=== PATIENT | female | born 1985 | race Hispanic/Latino ===

== ENCOUNTER 2017-10-31 21:34 | Emergency (ER) | payer OTHER ==
[2017-10-31 23:52] VITALS: BP 150/103
[2017-11-01 00:34] LABS: Basophils # (Auto) 0.1 K/mm3 (0.0-0.1); Basophils % (Auto) 0.6 % (0.0-1.8); Eosinophils # (Auto) 0.4 K/mm3 (0.0-0.4); Hematocrit 39.5 % (30.3-42.9); Lymphocytes # (Auto) 1.7 K/mm3 (1.2-5.4); Lymphocytes % (Auto) 12.7 % (13.4-35.0); Mean Corpuscular HGB Conc 33 % (30-34); Mean Corpuscular Hemoglobin 31 pg (28-32); Mean Corpuscular Volume 96 fl (79-97); Monocytes # (Auto) 1.6 K/mm3 (0.0-0.8); Platelet Count 321 K/mm3 (140-440); Red Blood Count 4.13 M/mm3 (3.65-5.03); Red Cell Distribution Width 13.2 % (13.2-15.2)
[2017-11-01 00:56] LABS: Alanine Aminotransferase 7 units/L (7-56); Albumin 4.2 g/dL (3.9-5); BUN/Creatinine Ratio 14; Blood Urea Nitrogen 7 mg/dL (7-17); Calcium 8.8 mg/dL (8.4-10.2); Hemolysis Index 10; Lipase 19 units/L (13-60)
[2017-11-01 01:57] LABS: HCG Qualitative,Urine Negative (Negative)
[2017-11-01 02:00] LABS: Bilirubin,Urine NEG (Negative); Blood,Urine MOD (Negative); Calcium Oxalate Crystals,Urine 3+; Color,Urine Yellow (Yellow); Hyaline Casts,Urine 1 /LPF; Mucus,Urine 3+ /HPF; Nitrite,Urine NEG (Negative); Protein,Urine <15 mg/dL mg/dL (Negative); Urobilinogen,Urine < 2.0 mg/dL (<2.0)
== END 2017-11-01 04:54 | disposition left against medical advice (07) ==
LOC: ED 21:34
DX: R10.9 Unspecified abdominal pain (principal); Z53.21 Procedure and treatment not carried out due to patient leaving prior to being seen by health care provider
CPT/HCPCS: 36415; 80053; 81001; 81025; 83690; 85025

== ENCOUNTER 2019-06-21 20:55 | Emergency (ER) | payer OTHER ==
--- NOTE | 2019-06-21 21:33 | Event Note ---
ED Screening Note Date of service: 06/21/19 Time: 21:31 ED Screening Note: 33 y olf female presents with left sided chest pain radiating upwards to shoulder hx of HTN on 5 medications hx of TIA,VAZQUEZ This initial assessment/diagnostic orders/clinical plan/treatment(s) is/are subject to change based on patients health status, clinical progression and re- assessment by fellow clinical providers in the ED. Further treatment and workup at subsequent clinical providers discretion. Patient/guardian urged not to elope from the ED as their condition may be serious if not clinically assessed and managed. Initial orders include: labs ordered ekg Main eval
[2019-06-21 22:02] LABS: Basophils # (Auto) 0.2 K/mm3 (0.0-0.1); Basophils % (Auto) 2.2 % (0.0-1.8); Eosinophils # (Auto) 0.3 K/mm3 (0.0-0.4); Eosinophils % (Auto) 3.7 % (0.0-4.3); Hematocrit 47.1 % (30.3-42.9); Hemoglobin 16.1 gm/dl (10.1-14.3); Lymphocytes # (Auto) 1.7 K/mm3 (1.2-5.4); Lymphocytes % (Auto) 19.6 % (13.4-35.0); Mean Corpuscular HGB Conc 34 % (30-34); Mean Corpuscular Volume 95 fl (79-97); Monocytes # (Auto) 1.1 K/mm3 (0.0-0.8); Monocytes % (Auto) 12.3 % (0.0-7.3); Platelet Count 342 K/mm3 (140-440); Red Blood Count 4.94 M/mm3 (3.65-5.03); Red Cell Distribution Width 13.5 % (13.2-15.2)
[2019-06-21 22:22] LABS: Amphetamine Screen,Urine PRESUMPTIVE NEGATIVE; Benzodiazepines Screen,Urine PRESUMPTIVE NEGATIVE; Cocaine Screen,Urine PRESUMPTIVE NEGATIVE; Methadone Screen,Urine PRESUMPTIVE NEGATIVE; Opiate Screen,Urine PRESUMPTIVE NEGATIVE
--- NOTE | 2019-06-21 22:23 | XRay Report ---
CHEST 2 VIEWS INDICATION / CLINICAL INFORMATION: Chest Pain. COMPARISON: None available. FINDINGS: SUPPORT DEVICES: None. HEART / MEDIASTINUM: No significant abnormality. LUNGS / PLEURA: No significant pulmonary or pleural abnormality. No pneumothorax. ADDITIONAL FINDINGS: No significant additional findings. IMPRESSION: 1. No significant abnormality. Signer Name: Jessy Dodd MD Signed: 06/21/2019 10:19 PM Workstation Name: [id number]
[2019-06-21 22:29] LABS: Alanine Aminotransferase 6 units/L (7-56); Albumin 4.5 g/dL (3.9-5); BUN/Creatinine Ratio 10; Blood Urea Nitrogen 7 mg/dL (7-17); Calcium 9.1 mg/dL (8.4-10.2); Hemolysis Index 9
[2019-06-21] MEDS ORDERED: TORADOL IV ONE (22:34)
[2019-06-21] MEDS ORDERED: MORPHINE IV ONE (22:34)
[2019-06-21] MEDS ORDERED: ZOFRAN IV ONE (22:34)
[2019-06-21 22:47] LABS: INR 1.14 (0.87-1.13)
[2019-06-21 22:54] LABS: Cannabinoid Screen,Urine PRESUMPTIVE POSITIVE
--- NOTE | 2019-06-21 23:04 | Emergency Department Report ---
ED Chest Pain HPI - General Chief Complaint: Chest Pain Stated Complaint: SHARP PAINS ON THE LEFT SIDE OF CHEST Time Seen by Provider: 06/21/19 21:30 Source: patient Mode of arrival: Ambulatory Limitations: No Limitations - History of Present Illness Initial Comments: 33-year-old female in the past medical history of hypertension, TIA, enlarged heart, and previous hysterectomy presents to the hospital with complains of left-sided sharp chest pain as started at 8:30 PM. Pain is constant, worse palpation, movement, and deep inspiration. Pain is at the left side of the chest and radiates to the left shoulder and left arm. Patient is 8/10 in intens ity and no alleviating symptoms reported. Positive shortness of breath, nausea, and vomiting. No diaphoresis. She denies history of PE/DVT, control pill use, calf tenderness, or leg edema. Patient last [id number] travel was 4 hours to and from [place] in March. Patient states 4 different medications for her blood pressure as well as an anti-depressant. She took a last dose of her medications yesterday afternoon because she ran out. She reports having a stress test 4 years ago that was not followed by cardiac cath. Her [employer] group is [place] heart associated Severity scale (0 -10): 8 - Related Data Previous Rx's Medication Instructions Recorded Last Taken Type Aspirin EC 325 mg PO QDAY #30 tablet. 06/22/19 Unknown Rx Lisinopril [Zestril TAB] 40 mg PO QDAY #7 tablet 06/22/19 Unknown Rx Spironolactone [Aldactone] 12.5 mg PO QDAY #7 tablet 06/22/19 Unknown Rx amLODIPine [Norvasc] 10 mg PO DAILY #7 tab 06/22/19 Unknown Rx buPROPion SR [Wellbutrin SR] 150 mg PO BID #14 tab 06/22/19 Unknown Rx hydroCHLOROthiazide [Hctz] 12.5 mg PO QDAY #7 capsule 06/22/19 Unknown Rx traMADol [Ultram 50 MG tab] 50 mg PO Q6HR PRN #14 tablet 06/22/19 Unknown Rx Allergies Allergy/AdvReac Type Severity Reaction Status Date / Time iodine Allergy Itching Verified 10/31/17 23:53 metoclopramide [From Reglan] Allergy Vomiting Verified 10/31/17 23:54 promethazine [From Phenergan] Allergy Vomiting Verified 10/31/17 23:53 amoxicillin [From Amoxil] AdvReac Vomiting Verified 10/31/17 23:54 Heart Score - HEART Score History: Slightly suspicious EKG: Non-specific Age: < 45 Risk factors: 1-2 risk factors (family hx unkown pt is adopted) Troponin: < normal limit HEART Score: 2 ED Review of Systems ROS: Stated complaint: SHARP PAINS ON THE LEFT SIDE OF CHEST Other details as noted in HPI Comment: All other systems reviewed and negative ED Past Medical Hx - Past Medical History Hx CVA: Yes (TIA) Hx Heart Attack/AMI: Yes Additional medical history: enlarged heart, ovarian cyst, kidney stones, - Surgical History Additional Surgical History: tonsils, tubal ligation, partial hysterectomy - Social History Smoking Status: Current Every Day Smoker Substance Use Type: None - Medications Home Medications: Home Medications Medication Instructions Recorded Confirmed Last Taken Type Aspirin EC 325 mg PO QDAY #30 tablet.dr 06/22/19 Unknown Rx Lisinopril [Zestril TAB] 40 mg PO QDAY #7 tablet 06/22/19 Unknown Rx Spironolactone [Aldactone] 12.5 mg PO QDAY #7 tablet 06/22/19 Unknown Rx amLODIPine [Norvasc] 10 mg PO DAILY #7 tab 06/22/19 Unknown Rx buPROPion SR [Wellbutrin SR] 150 mg PO BID #14 tab 06/22/19 Unknown Rx hydroCHLOROthiazide [Hctz] 12.5 mg PO QDAY #7 capsule 06/22/19 Unknown Rx traMADol [Ultram 50 MG tab] 50 mg PO Q6HR PRN #14 tablet 06/22/19 Unknown Rx ED Physical Exam - General Limitations: No Limitations - Other Other exam information: General: No acute distress Head: Atraumatic Eyes: Normal appearance, Pupils equal and reactive to light, extraocular movements intact ENT: Normal oropharynx Neck: Normal appearance, no posterior or midline tenderness, no meningismus Chest: Clear to auscultation bilaterally, no wheezes, rales, or crackles. Reproducible left anterior chest wall tenderness extending to the shoulder CV: Regular rate and rhythm Abdomen: soft, nontender, nondistended, no rebound or guarding Back: Nontender Extremity: Normal inspection, full range of motion, left shoulder and arm tenderness to palpation, no calf tenderness or leg edema Neuro: Alert and oriented 3, speech clear, no gross motor or sensory deficit Skin: No rash, redness, warmth ED Course Vital Signs 06/21/19 06/21/19 06/21/19 21:01 21:32 22:42 Temperature 98.8 F 98.2 F Pulse Rate 98 H 89 Respiratory 18 18 Rate Blood Pressure 160/125 Blood Pressure 210/131 [Right] O2 Sat by Pulse 99 99 93 Oximetry 06/21/19 06/21/19 06/21/19 22:46 23:00 23:15 Temperature Pulse Rate 58 L 74 67 Respiratory 14 18 21 Rate Blood Pressure 158/97 158/107 158/97 Blood Pressure [Right] O2 Sat by Pulse 100 100 100 Oximetry - Reevaluation(s) Reevaluation #1: 06/22/19 01:25 pt states her bp is always high with sbp 160's-200 and dbp over 100 pt was provided Lisinopril - Consultations Consultation #1: 06/22/19 01:14 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, since heart score less then 4, if repeat trop neg, pt may f/u HUGO score - Hugo Score Age > 65: (0) No Aspirin use within the Past 7 Days: (0) No 3 or more CAD Risk Factors: (0) No 2 or more Angina events in past 24 hrs: (0) No Known CAD with more than 50% Stenosis: (0) No Elevated Cardiac Markers: (0) No ST Deviation Greater than 0.5mm: (0) No HUGO Score: 0 ED Medical Decision Making - Lab Data Result diagrams: 06/21/19 21:43 06/21/19 21:43 Lab Results 06/21/19 06/21/19 06/21/19 Range/Units 21:43 21:43 22:15 WBC 8.8 (4.5-11.0) K/mm3 RBC 4.94 (3.65-5.03) M/mm3 Hgb 16.1 H (10.1-14.3) gm/dl Hct 47.1 H (30.3-42.9) % MCV 95 (79-97) fl MCH 33 H (28-32) pg MCHC 34 (30-34) % RDW 13.5 (13.2-15.2) % Plt Count 342 (140-440) K/mm3 Lymph % (Auto) 19.6 (13.4-35.0) % Meade % (Auto) 12.3 H (0.0-7.3) % Eos % (Auto) 3.7 (0.0-4.3) % Baso % (Auto) 2.2 H (0.0-1.8) % Lymph # 1.7 (1.2-5.4) K/mm3 Meade # 1.1 H (0.0-0.8) K/mm3 Eos # 0.3 (0.0-0.4) K/mm3 Baso # 0.2 H (0.0-0.1) K/mm3 Seg Neutrophils % 62.2 (40.0-70.0) % Seg Neutrophils # 5.5 (1.8-7.7) K/mm3 PT 14.3 (12.2-14.9) Sec. INR 1.14 H (0.87-1.13) D-Dimer < 135.0 (0-234) ng/mlDDU Sodium 144 (137-145) mmol/L Potassium 3.4 L (3.6-5.0) mmol/L Chloride 103.9 (98-107) mmol/L Carbon Dioxide 28 (22-30) mmol/L Anion Gap 16 mmol/L BUN 7 (7-17) mg/dL Creatinine 0.7 (0.7-1.2) mg/dL Estimated GFR > 60 ml/min BUN/Creatinine Ratio 10 % Glucose 81 (65-100) mg/dL Calcium 9.1 (8.4-10.2) mg/dL Total Bilirubin 0.60 (0.1-1.2) mg/dL AST 11 (5-40) units/L ALT 6 L (7-56) units/L Alkaline Phosphatase 73 (35-129) units/L Troponin T < 0.010 (0.00-0.029) ng/mL Total Protein 7.1 (6.3-8.2) g/dL Albumin 4.5 (3.9-5) g/dL Albumin/Globulin Ratio 1.7 % Lipase 29 (13-60) units/L Urine Opiates Screen Urine Methadone Screen Ur Barbiturates Screen Ur Phencyclidine Scrn Ur Amphetamines Screen U Benzodiazepines Scrn Urine Cocaine Screen U Marijuana (THC) Screen Drugs of Abuse Note 06/21/19 Range/Units Unknown WBC (4.5-11.0) K/mm3 RBC (3.65-5.03) M/mm3 Hgb (10.1-14.3) gm/dl Hct (30.3-42.9) % MCV (79-97) fl MCH (28-32) pg MCHC (30-34) % RDW (13.2-15.2) % Plt Count (140-440) K/mm3 Lymph % (Auto) (13.4-35.0) % Meade % (Auto) (0.0-7.3) % Eos % (Auto) (0.0-4.3) % Baso % (Auto) (0.0-1.8) % Lymph # (1.2-5.4) K/mm3 Meade # (0.0-0.8) K/mm3 Eos # (0.0-0.4) K/mm3 Baso # (0.0-0.1) K/mm3 Seg Neutrophils % (40.0-70.0) % Seg Neutrophils # (1.8-7.7) K/mm3 PT (12.2-14.9) Sec. INR (0.87-1.13) D-Dimer (0-234) ng/mlDDU Sodium (137-145) mmol/L Potassium (3.6-5.0) mmol/L Chloride (98-107) mmol/L Carbon Dioxide (22-30) mmol/L Anion Gap mmol/L BUN (7-17) mg/dL Creatinine (0.7-1.2) mg/dL Estimated GFR ml/min BUN/Creatinine Ratio % Glucose (65-100) mg/dL Calcium (8.4-10.2) mg/dL Total Bilirubin (0.1-1.2) mg/dL AST (5-40) units/L ALT (7-56) units/L Alkaline Phosphatase (35-129) units/L Troponin T (0.00-0.029) ng/mL Total Protein (6.3-8.2) g/dL Albumin (3.9-5) g/dL Albumin/Globulin Ratio % Lipase (13-60) units/L Urine Opiates Screen Presumptive negative Urine Methadone Screen Presumptive negative Ur Barbiturates Screen Presumptive negative Ur Phencyclidine Scrn Presumptive negative Ur Amphetamines Screen Presumptive negative U Benzodiazepines Scrn Presumptive negative Urine Cocaine Screen Presumptive negative U Marijuana (THC) Screen Presumptive positive Drugs of Abuse Note Disclamer - EKG Data -: EKG Interpreted by Me EKG shows normal: sinus rhythm, ST-T waves (no stemi) Rate: tachycardia (104) - Radiology Data Radiology results: report reviewed CHEST 2 VIEWS INDICATION / CLINICAL INFORMATION: Chest Pain. COMPARISON: None available. FINDINGS: SUPPORT DEVICES: None. HEART / MEDIASTINUM: No significant abnormality. LUNGS / PLEURA: No significant pulmonary or pleural abnormality. No pneumothorax. ADDITIONAL FINDINGS: No significant additional findings. IMPRESSION: 1. No significant abnormality. - Medical Decision Making chest wall pain improved with ed tx of toradol and morphine bp trending downward, lisinopril provided Po Kcl given for hypokalemia (mild) pt states she has kcl at home Patient has a low heart score less than 4 and therefore does not warrant admi ssion tonight Troponin is negative 2 Case Discussed with [employer] Patient plans to follow-up within next 24-40 hours. 1 week supply of her meds will be prescribed - Differential Diagnosis mi, costochondritis, muscle strain, pronate embolism, pneumothorax Critical Care Time: No Critical care attestation.: If time is entered above; I have spent that time in minutes in the direct care of this critically ill patient, excluding procedure time. ED Disposition Clinical Impression: Chest wall pain, Uncontrolled hypertension, Hypokalemia, Noncompliance with medication regimen, Nausea and vomiting Disposition: DC-01 TO HOME OR SELFCARE Is pt being admited?: No Does the pt Need Aspirin: No Condition: Stable Instructions: Chest Pain (ED), Hypertension (ED), Acute Nausea and Vomiting (ED), Hypokalemia (ED) Additional Instructions: Take the medication as prescribed. Follow-up with your doctor or the doctor/clinic provided. Return is symptoms worsen as indicated by your discharge instructions. Prescriptions: Spironolactone [Aldactone] 12.5 mg PO QDAY #7 tablet Aspirin EC 325 mg PO QDAY #30 tablet. hydroCHLOROthiazide [Hctz] 12.5 mg PO QDAY #7 capsule amLODIPine [Norvasc] 10 mg PO DAILY #7 tab traMADol [Ultram 50 MG tab] 50 mg PO Q6HR PRN #14 tablet PRN Reason: Pain buPROPion SR [Wellbutrin SR] 150 mg PO BID #14 tab Lisinopril [Zestril TAB] 40 mg PO QDAY #7 tablet Referrals: MICHAEL OTTO [Other] - 3-5 Days REUBEN MEZA MD [Staff Physician] - 2-3 Days Time of Disposition: 01:36
[2019-06-21] MEDS ORDERED: K-DUR PO ONE (23:14)
[2019-06-21] MEDS ORDERED: ZESTRIL PO ONE (23:14)
[2019-06-22 01:42] VITALS: BP 160/111
== END 2019-06-22 02:15 | disposition home or self-care (01) ==
LOC: ED 20:55
DX: E87.6 Hypokalemia (principal); I10 Essential (primary) hypertension; R07.89 Other chest pain; I25.2 Old myocardial infarction; F17.200 Nicotine dependence, unspecified, uncomplicated; Z98.51 Tubal ligation status; Z91.14 Patient's other noncompliance with medication regimen; Z86.73 Personal history of transient ischemic attack (TIA), and cerebral infarction without residual deficits; Z90.710 Acquired absence of both cervix and uterus; Z79.82 Long term (current) use of aspirin; Z79.899 Other long term (current) drug therapy; Z88.6 Allergy status to analgesic agent; Z88.1 Allergy status to other antibiotic agents; Z88.8 Allergy status to other drugs, medicaments and biological substances
CPT/HCPCS: 36415; 71046; 80053; 80307; 83690; 84484; 85025; 85379; 85610; 93005; 93010; 96374; 96375; 99284; J1885; J2270; J2405

== ENCOUNTER 2020-12-07 18:28 | Emergency (ER) | payer OTHER ==
--- NOTE | 2020-12-07 19:15 | Emergency Department Report ---
ED General Adult HPI - General Stated complaint: FEET NUMB/CANT WALK WELL Time Seen by Provider: 12/07/20 19:14 - History of Present Illness Initial comments: 34-year-old female who reports a past medical history of MIs x2, "enlarged heart", TIA, hypertension, medication noncompliance and tobacco use presents to the ER today complaining of pain to the plantar aspect of both feet. She states that she has been having symptoms for about a year. She states that the pain is sharp, and and when the pain is severe it gets numb. She states that the pain is same throughout the day. It is worse when she ambulates. She states that she used to work at a job where she stood up a lot, but she stopped working there about a month ago. She states that she has been to multiple doctors for her feet pain and nobody can tell her what is going on. She states that she has had a blood sugar checked and that was normal. She is also had evaluation of her veins and arteries and those were also normal. She has not followed up with a child and adolescent psychiatrist. She denies any associated swelling, bruising, calf pain, chest pain or shortness of breath. MD Complaint: Bilateral plantar feet pain -: year(s) (1) - Related Data Previous Rx's Medication Instructions Recorded Last Taken Type Aspirin EC [Ecotrin] 325 mg PO QDAY #30 tablet. 06/22/19 Unknown Rx Spironolactone [Aldactone] 12.5 mg PO QDAY #7 tablet 06/22/19 Unknown Rx amLODIPine [Norvasc] 10 mg PO DAILY #7 tab 06/22/19 Unknown Rx buPROPion SR [Wellbutrin SR] 150 mg PO BID #14 tab 06/22/19 Unknown Rx hydroCHLOROthiazide [Hctz] 12.5 mg PO QDAY #7 capsule 06/22/19 Unknown Rx lisinopriL [Zestril TAB] 40 mg PO QDAY #7 tablet 06/22/19 Unknown Rx Acetaminophen/Codeine [Tylenol 1 tab PO Q4HR PRN #12 tablet 12/07/20 Unknown Rx /Codeine # 3 tab] methylPREDNISolone [Medrol 4MG 4 mg PO DAILY #1 tab.ds.pk 12/07/20 Unknown Rx DOSEPAK (21 tabs)] Allergies Allergy/AdvReac Type Severity Reaction Status Date / Time iodine Allergy Itching Verified 10/31/17 23:53 metoclopramide [From Reglan] Allergy Vomiting Verified 10/31/17 23:54 promethazine [From Phenergan] Allergy Vomiting Verified 10/31/17 23:53 amoxicillin [From Amoxil] AdvReac Vomiting Verified 10/31/17 23:54 ED Review of Systems ROS: Stated complaint: FEET NUMB/CANT WALK WELL Other details as noted in HPI Comment: All other systems reviewed and negative Musculoskeletal: arthralgia. denies: joint swelling Neurological: numbness ED Past Medical Hx - Past Medical History Hx CVA: Yes (TIA) Hx Heart Attack/AMI: Yes Additional medical history: enlarged heart, ovarian cyst, kidney stones, - Surgical History Additional Surgical History: tonsils, tubal ligation, partial hysterectomy - Social History Smoking Status: Current Every Day Smoker Substance Use Type: None - Medications Home Medications: Home Medications Medication Instructions Recorded Confirmed Last Taken Type Aspirin EC [Ecotrin] 325 mg PO QDAY #30 tablet.dr 06/22/19 Unknown Rx Spironolactone [Aldactone] 12.5 mg PO QDAY #7 tablet 06/22/19 Unknown Rx amLODIPine [Norvasc] 10 mg PO DAILY #7 tab 06/22/19 Unknown Rx buPROPion SR [Wellbutrin SR] 150 mg PO BID #14 tab 06/22/19 Unknown Rx hydroCHLOROthiazide [Hctz] 12.5 mg PO QDAY #7 capsule 06/22/19 Unknown Rx lisinopriL [Zestril TAB] 40 mg PO QDAY #7 tablet 06/22/19 Unknown Rx Acetaminophen/Codeine [Tylenol 1 tab PO Q4HR PRN #12 tablet 12/07/20 Unknown Rx /Codeine # 3 tab] methylPREDNISolone [Medrol 4MG 4 mg PO DAILY #1 tab.ds.pk 12/07/20 Unknown Rx DOSEPAK (21 tabs)] ED Physical Exam - General Limitations: No Limitations, Language Barrier General appearance: alert, in no apparent distress - Head Head exam: Present: atraumatic, normocephalic, normal inspection - Eye Eye exam: Present: normal appearance, PERRL, EOMI Pupils: Present: normal accommodation - ENT ENT exam: Present: normal exam, mucous membranes moist - Respiratory Respiratory exam: Absent: respiratory distress - Cardiovascular Cardiovascular Exam: Present: regular rate, normal rhythm, normal heart sounds - Extremities Exam Extremities exam: Present: normal inspection, full ROM, tenderness (Moderate tenderness to palpation along the ball of both feet; Pain is increased on dorsiflexion; no swelling, ecchymosis, deformity noted; Cap refill nl, dorsalis pedis pulse nl, ROM of toes nl), normal capillary refill. Absent: pedal edema, joint swelling - Neurological Exam Neurological exam: Present: alert, oriented X3, CN II-XII intact, normal gait. Absent: motor sensory deficit - Psychiatric Psychiatric exam: Present: normal affect, normal mood - Skin Skin exam: Present: intact ED Course Vital Signs 12/07/20 19:14 Temperature 98.7 F Pulse Rate 96 H Respiratory 18 Rate Blood Pressure 176/120 O2 Sat by Pulse 100 Oximetry ED Medical Decision Making - Medical Decision Making Patient presented to the ER with complaints of chronic plantar foot pain. Patient blood pressure noted to be elevated in triage. Patient admits that she has been noncompliant with her blood pressure medication. Patient has no symptoms related to her elevated blood pressure. Patient is well-appearing, not toxic, not ill-appearing, she is awake alert oriented x3 and neurologically intact. Emergent blood pressure treatment nor work-up indicated at this time. Patient was encouraged to restart her blood pressure medication. She has a follow-up appointment with her primary care doctor on the . She is instructed to keep that appointment to continue follow-up with her blood pressure. As far as the foot is concerned, informed patient that she needs to see a child and adolescent psychiatrist for her foot pain, as it could be related to plantar fasciitis. Patient expressed understanding of instructions and agree with plan. Patient was stable at time of discharge. Critical care attestation.: If time is entered above; I have spent that time in minutes in the direct care of this critically ill patient, excluding procedure time. ED Disposition Clinical Impression: Bilateral foot pain, Uncontrolled hypertension Disposition: TO HOME OR SELFCARE Is pt being admited?: No Does the pt Need Aspirin: No Condition: Stable Instructions: Hypertension, Adult, [id number], Foot Pain, Hypertension (ED) Additional Instructions: I recommend that you restart your blood pressure medications. Take the tylenol 3 and decadron as prescribed. Call your insurance to find a local child and adolescent psychiatrist for further eval of your foot pain. Return to ED if symptoms changes or worsens. Prescriptions: methylPREDNISolone [Medrol 4MG DOSEPAK (21 tabs)] 4 mg PO DAILY #1 tab.ds.pk Acetaminophen/Codeine [Tylenol /Codeine # 3 tab] 1 tab PO Q4HR PRN #12 tablet PRN Reason: Pain Referrals: [facility] [Provider Group] - 3-5 Days Time of Disposition: 19:39
[2020-12-07 19:18] VITALS: BP 176/120
== END 2020-12-07 20:19 | disposition home or self-care (01) ==
LOC: ED 18:28
DX: M79.672 Pain in left foot (principal); M79.671 Pain in right foot; I10 Essential (primary) hypertension; F17.200 Nicotine dependence, unspecified, uncomplicated; Z98.890 Other specified postprocedural states; Z86.73 Personal history of transient ischemic attack (TIA), and cerebral infarction without residual deficits; Z79.899 Other long term (current) drug therapy; Z88.8 Allergy status to other drugs, medicaments and biological substances
CPT/HCPCS: 99281

== ENCOUNTER 2021-04-05 13:18 | Emergency (ER) | payer OTHER ==
--- NOTE | 2021-04-05 14:55 | Emergency Department Report ---
- General Chief complaint: Animal Bite Stated complaint: POSS INSECT BITE Time Seen by Provider: 04/05/21 14:41 Source: patient Mode of arrival: Ambulatory Limitations: No Limitations - History of Present Illness Initial comments: Patient is a 35-year-old female presents emergency room complaints of a possible insect bite to the left forearm that occurred yesterday. She did not feel or see anything by her. She states that she is noticed a small amount of redness and swelling. She denies any drainage, fever, numbness, weakness. Past medical history of hypertension. Allergy to iodine, Reglan, Phenergan, amoxicillin. - Related Data Previous Rx's Medication Instructions Recorded Last Taken Type Aspirin EC [Ecotrin] 325 mg PO QDAY #30 tablet.dr 06/22/19 Unknown Rx Spironolactone [Aldactone] 12.5 mg PO QDAY #7 tablet 06/22/19 Unknown Rx amLODIPine [Norvasc] 10 mg PO DAILY #7 tab 06/22/19 Unknown Rx buPROPion SR [Wellbutrin SR] 150 mg PO BID #14 tab 06/22/19 Unknown Rx hydroCHLOROthiazide [Hctz] 12.5 mg PO QDAY #7 capsule 06/22/19 Unknown Rx lisinopriL [Zestril TAB] 40 mg PO QDAY #7 tablet 06/22/19 Unknown Rx Acetaminophen/Codeine [Tylenol 1 tab PO Q4HR PRN #12 tablet 12/07/20 Unknown Rx /Codeine # 3 tab] methylPREDNISolone [Medrol 4MG 4 mg PO DAILY #1 tab.ds.pk 12/07/20 Unknown Rx DOSEPAK (21 tabs)] Doxycycline Hyclate [Doxycycline 100 mg PO BID 7 Days #14 tab 04/05/21 Unknown Rx Hyclate TAB] Mupirocin [Bactroban 2% OINT] 1 applic TP TID #1 tube 04/05/21 Unknown Rx Allergies Allergy/AdvReac Type Severity Reaction Status Date / Time iodine Allergy Itching Verified 10/31/17 23:53 metoclopramide [From Reglan] Allergy Vomiting Verified 10/31/17 23:54 promethazine [From Phenergan] Allergy Vomiting Verified 10/31/17 23:53 amoxicillin [From Amoxil] AdvReac Vomiting Verified 10/31/17 23:54 Abscess Boil HPI - HPI Chief Complaint: Animal Bite Stated Complaint: POSS INSECT BITE Time Seen by Provider: 04/05/21 14:41 Home Medications: Previous Rx's Medication Instructions Recorded Last Taken Type Aspirin EC [Ecotrin] 325 mg PO QDAY #30 tablet. 06/22/19 Unknown Rx Spironolactone [Aldactone] 12.5 mg PO QDAY #7 tablet 06/22/19 Unknown Rx amLODIPine [Norvasc] 10 mg PO DAILY #7 tab 06/22/19 Unknown Rx buPROPion SR [Wellbutrin SR] 150 mg PO BID #14 tab 06/22/19 Unknown Rx hydroCHLOROthiazide [Hctz] 12.5 mg PO QDAY #7 capsule 06/22/19 Unknown Rx lisinopriL [Zestril TAB] 40 mg PO QDAY #7 tablet 06/22/19 Unknown Rx Acetaminophen/Codeine [Tylenol 1 tab PO Q4HR PRN #12 tablet 12/07/20 Unknown Rx /Codeine # 3 tab] methylPREDNISolone [Medrol 4MG 4 mg PO DAILY #1 tab.ds.pk 12/07/20 Unknown Rx DOSEPAK (21 tabs)] Doxycycline Hyclate [Doxycycline 100 mg PO BID 7 Days #14 tab 04/05/21 Unknown Rx Hyclate TAB] Mupirocin [Bactroban 2% OINT] 1 applic TP TID #1 tube 04/05/21 Unknown Rx Allergies/Adverse Reactions: Allergies Allergy/AdvReac Type Severity Reaction Status Date / Time iodine Allergy Itching Verified 10/31/17 23:53 metoclopramide [From Reglan] Allergy Vomiting Verified 10/31/17 23:54 promethazine [From Phenergan] Allergy Vomiting Verified 10/31/17 23:53 amoxicillin [From Amoxil] AdvReac Vomiting Verified 10/31/17 23:54 ED Review of Systems ROS: Stated complaint: POSS INSECT BITE Other details as noted in HPI Comment: All other systems reviewed and negative ED Past Medical Hx - Past Medical History Hx Hypertension: Yes (States she stopped taking her BP medications) Hx CVA: Yes (TIA) Hx Heart Attack/AMI: Yes Additional medical history: enlarged heart, ovarian cyst, kidney stones, - Surgical History Additional Surgical History: tonsils, tubal ligation, partial hysterectomy - Social History Smoking Status: Current Every Day Smoker Substance Use Type: Alcohol - Medications Home Medications: Home Medications Medication Instructions Recorded Confirmed Last Taken Type Aspirin EC [Ecotrin] 325 mg PO QDAY #30 tablet.dr 06/22/19 Unknown Rx Spironolactone [Aldactone] 12.5 mg PO QDAY #7 tablet 06/22/19 Unknown Rx amLODIPine [Norvasc] 10 mg PO DAILY #7 tab 06/22/19 Unknown Rx buPROPion SR [Wellbutrin SR] 150 mg PO BID #14 tab 06/22/19 Unknown Rx hydroCHLOROthiazide [Hctz] 12.5 mg PO QDAY #7 capsule 06/22/19 Unknown Rx lisinopriL [Zestril TAB] 40 mg PO QDAY #7 tablet 06/22/19 Unknown Rx Acetaminophen/Codeine [Tylenol 1 tab PO Q4HR PRN #12 tablet 12/07/20 Unknown Rx /Codeine # 3 tab] methylPREDNISolone [Medrol 4MG 4 mg PO DAILY #1 tab.ds.pk 12/07/20 Unknown Rx DOSEPAK (21 tabs)] Doxycycline Hyclate [Doxycycline 100 mg PO BID 7 Days #14 tab 04/05/21 Unknown Rx Hyclate TAB] Mupirocin [Bactroban 2% OINT] 1 applic TP TID #1 tube 04/05/21 Unknown Rx ED Physical Exam - General Limitations: No Limitations General appearance: alert, in no apparent distress - Head Head exam: Present: atraumatic, normocephalic - Eye Eye exam: Present: normal appearance - ENT ENT exam: Present: mucous membranes moist - Respiratory Respiratory exam: Absent: respiratory distress, accessory muscle use - Neurological Exam Neurological exam: Present: alert, oriented X3 - Psychiatric Psychiatric exam: Present: normal affect, normal mood - Skin Skin exam: Present: warm, dry, other (1 cm area of induration to the left anterior forearm, no fluctuance, no drainage, no necrosis, no significant surrounding erythema, neurovascularly intact) ED Course Vital Signs 04/05/21 13:48 Temperature 98.5 F Pulse Rate 90 Respiratory 18 Rate Blood Pressure 157/111 O2 Sat by Pulse 100 Oximetry ED Medical Decision Making - Medical Decision Making Patient is a 35-year-old female presents emergency room complaints of a possible insect bite to the left forearm that occurred yesterday. She did not feel or see anything by her. She states that she is noticed a small amount of redness and swelling. She denies any drainage, fever, numbness, weakness. Past medical history of hypertension. Allergy to iodine, Reglan, Phenergan, amoxicillin. Vitals are stable. On exam:1 cm area of induration to the left anterior forearm, no fluctuance, no drainage, no necrosis, no significant surrounding erythema, neurovascularly intact. Examination. consistent with mild cellulitis, no signs of abscess at this time, no skin necrosis. Patient given prescription for medications. Advised patient Please use medication as prescribed. Follow-up with a primary care doctor for reexamination. Return to emergency room for new or worsening symptoms. Critical care attestation.: If time is entered above; I have spent that time in minutes in the direct care of this critically ill patient, excluding procedure time. ED Disposition Clinical Impression: Cellulitis Qualifiers: Site of cellulitis: extremity Site of cellulitis of extremity: upper extremity Laterality: left Qualified Code(s): L03.114 - Cellulitis of left upper limb Disposition: - TO HOME OR SELFCARE Is pt being admited?: No Does the pt Need Aspirin: No Condition: Stable Instructions: Cellulitis, Adult Additional Instructions: Please use medication as prescribed. Follow-up with a primary care doctor for reexamination. Return to emergency room for new or worsening symptoms. Prescriptions: Mupirocin [Bactroban 2% OINT] 1 applic TP TID #1 tube Doxycycline Hyclate [Doxycycline Hyclate TAB] 100 mg PO BID 7 Days #14 tab Referrals: LAURA MCHUGH MD [Staff Physician] - 2-3 Days [facility] [Provider Group] - 2-3 Days Forms: Work/School Release Form(ED) Time of Disposition: 14:54 Print Language: SYRIAC
== END 2021-04-05 16:25 | disposition home or self-care (01) ==
LOC: ED 13:18
CPT/HCPCS: 99281

== ENCOUNTER 2021-10-05 07:10 | Emergency (ER) | payer OTHER ==
[2021-10-05 08:28] LABS: Bilirubin,Urine NEG (Negative); Color,Urine Straw (Yellow)
[2021-10-05] MEDS ORDERED: MORPHINE 4 MG/1 ML INJ IV ONE (08:28)
[2021-10-05] MEDS ORDERED: SODIUM CHLORIDE 0.9% 1000 ML 1,000 ML IV ONE (08:28)
[2021-10-05] MEDS ORDERED: ONDANSETRON 4 MG/2 ML INJ IV ONE (08:28)
[2021-10-05 08:29] LABS: Blood,Urine SM (Negative); Protein,Urine <15 mg/dL mg/dL (Negative); Urobilinogen,Urine < 2.0 mg/dL (<2.0)
--- NOTE | 2021-10-05 08:33 | Emergency Department Report ---
ED General Adult HPI - General Chief complaint: Abdominal Pain Stated complaint: ABD PAIN Time Seen by Provider: 10/05/21 08:03 Source: patient Mode of arrival: Ambulatory Limitations: No Limitations - History of Present Illness Initial comments: 35-year-old female patient with history of MVP and hypertension presents with complaints of sudden onset of right upper abdominal pain and nausea and vomiting starting yesterday. She also admits to some diarrhea. She denies any melena/hematochezia, mid emesis/coffee-ground emesis, fever/chills/s weats, cough, shortness of breath, or chest pain. She states the pain seems to be pushing on her upper abdomen and cause her heartburn. Has abdominal surgical history includes a partial hysterectomy and tubal ligation. She rates her pain as 8/10 in severity and states it improves with pulling her knees towards her chest while lying down - Related Data Previous Rx's Medication Instructions Recorded Last Taken Type Aspirin EC [Ecotrin] 325 mg PO QDAY #30 tablet.dr 06/22/19 Unknown Rx Spironolactone [Aldactone] 12.5 mg PO QDAY #7 tablet 06/22/19 Unknown Rx amLODIPine [Norvasc] 10 mg PO DAILY #7 tab 06/22/19 Unknown Rx buPROPion SR [Wellbutrin SR] 150 mg PO BID #14 tab 06/22/19 Unknown Rx hydroCHLOROthiazide [Hctz] 12.5 mg PO QDAY #7 capsule 06/22/19 Unknown Rx lisinopriL [Zestril TAB] 40 mg PO QDAY #7 tablet 06/22/19 Unknown Rx Acetaminophen/Codeine [Tylenol 1 tab PO Q4HR PRN #12 tablet 12/07/20 Unknown Rx /Codeine # 3 tab] methylPREDNISolone [Medrol 4MG 4 mg PO DAILY #1 tab.ds.pk 12/07/20 Unknown Rx DOSEPAK (21 tabs)] Doxycycline Hyclate [Doxycycline 100 mg PO BID 7 Days #14 tab 04/05/21 Unknown Rx Hyclate TAB] Mupirocin [Bactroban 2% OINT] 1 applic TP TID #1 tube 04/05/21 Unknown Rx Famotidine [Pepcid] 20 mg PO BID 7 Days #14 tablet 10/05/21 Unknown Rx Ondansetron [Zofran Odt] 4 mg PO Q8HR PRN #15 tab.rapdis 10/05/21 Unknown Rx predniSONE [Deltasone] 20 mg PO BID #6 tab 10/05/21 Unknown Rx traMADoL [Ultram 50 MG tab] 50 mg PO Q8HR PRN #6 tablet 10/05/21 Unknown Rx Allergies Allergy/AdvReac Type Severity Reaction Status Date / Time iodine Allergy Itching Verified 10/31/17 23:53 metoclopramide [From Reglan] Allergy Vomiting Verified 10/31/17 23:54 promethazine [From Phenergan] Allergy Vomiting Verified 10/31/17 23:53 sulfamethoxazole Allergy Hives Verified 10/05/21 07:25 [From Bactrim] trimethoprim [From Bactrim] Allergy Hives Verified 10/05/21 07:25 amoxicillin [From Amoxil] AdvReac Vomiting Verified 10/31/17 23:54 ED Review of Systems ROS: Stated complaint: ABD PAIN Other details as noted in HPI Constitutional: denies: chills, fever Respiratory: denies: cough, shortness of breath Gastrointestinal: abdominal pain Genitourinary: dysuria. denies: urgency, frequency, hematuria, discharge, abnormal menses, dyspareunia Skin: denies: rash, lesions, change in color Neurological: denies: headache Hematological/Lymphatic: denies: easy bleeding, swollen glands ED Past Medical Hx - Past Medical History Previous Medical History?: Yes Hx Hypertension: Yes (States she stopped taking her BP medications) Hx CVA: Yes (TIA) Hx Heart Attack/AMI: Yes Additional medical history: enlarged heart, ovarian cyst, kidney stones, - Surgical History Past Surgical History?: Yes Additional Surgical History: tonsils, tubal ligation, partial hysterectomy - Social History Smoking Status: Current Every Day Smoker Substance Use Type: Alcohol - Medications Home Medications: Home Medications Medication Instructions Recorded Confirmed Last Taken Type Aspirin EC [Ecotrin] 325 mg PO QDAY #30 tablet. 06/22/19 Unknown Rx Spironolactone [Aldactone] 12.5 mg PO QDAY #7 tablet 06/22/19 Unknown Rx amLODIPine [Norvasc] 10 mg PO DAILY #7 tab 06/22/19 Unknown Rx buPROPion SR [Wellbutrin SR] 150 mg PO BID #14 tab 06/22/19 Unknown Rx hydroCHLOROthiazide [Hctz] 12.5 mg PO QDAY #7 capsule 06/22/19 Unknown Rx lisinopriL [Zestril TAB] 40 mg PO QDAY #7 tablet 06/22/19 Unknown Rx Acetaminophen/Codeine [Tylenol 1 tab PO Q4HR PRN #12 tablet 12/07/20 Unknown Rx /Codeine # 3 tab] methylPREDNISolone [Medrol 4MG 4 mg PO DAILY #1 tab.ds.pk 12/07/20 Unknown Rx DOSEPAK (21 tabs)] Doxycycline Hyclate [Doxycycline 100 mg PO BID 7 Days #14 tab 04/05/21 Unknown Rx Hyclate TAB] Mupirocin [Bactroban 2% OINT] 1 applic TP TID #1 tube 04/05/21 Unknown Rx Famotidine [Pepcid] 20 mg PO BID 7 Days #14 tablet 10/05/21 Unknown Rx Ondansetron [Zofran Odt] 4 mg PO Q8HR PRN #15 tab.rapdis 10/05/21 Unknown Rx predniSONE [Deltasone] 20 mg PO BID #6 tab 10/05/21 Unknown Rx traMADoL [Ultram 50 MG tab] 50 mg PO Q8HR PRN #6 tablet 10/05/21 Unknown Rx ED Physical Exam - General Limitations: No Limitations General appearance: alert, in no apparent distress - Head Head exam: Present: atraumatic, normocephalic - Eye Eye exam: Present: normal appearance. Absent: scleral icterus - Neck Neck exam: Present: normal inspection - Respiratory Respiratory exam: Present: normal lung sounds bilaterally. Absent: respiratory distress - Cardiovascular Cardiovascular Exam: Present: regular rate, normal rhythm - GI/Abdominal GI/Abdominal exam: Present: soft, tenderness (Epigastric, right upper quadrant), normal bowel sounds. Absent: distended, rigid - Expanded GI/Abdominal Exam Expanded GI/Abdominal exam: Present: Gomez's sign - Back Exam Back exam: Present: full ROM - Neurological Exam Neurological exam: Present: alert, oriented X3 - Psychiatric Psychiatric exam: Present: normal affect, normal mood - Skin Skin exam: Present: warm, dry, intact, normal color. Absent: rash ED Course Vital Signs 10/05/21 10/05/21 07:25 10:20 Temperature 98.2 F Pulse Rate 81 Respiratory 18 Rate Blood Pressure 171/114 Blood Pressure 146/106 [Left] O2 Sat by Pulse 100 Oximetry ED Medical Decision Making - Lab Data Result diagrams: 10/05/21 08:59 10/05/21 08:59 - Radiology Data Radiology results: report reviewed LIMITED RUQ ABDOMINAL ULTRASOUND INDICATION: acute epigastric/RUQ pain. COMPARISON: No relevant prior imaging study available. FINDINGS: Pancreas: Visualized portions show no significant abnormality. Abdominal Aorta: No significant abnormality. IVC: No significant abnormality. Liver: The liver measures 15.6 cm in length. No significant abnormality. Normal hepatopedal blood flow in the main portal vein. Gallbladder: No significant abnormality. Bile ducts: No significant abnormality. Common bile duct measures 4.6 mm. Right kidney: No significant abnormality visualized. Free fluid: None. Additional Findings: None. IMPRESSION: No significant abnormality identified. CT ABDOMEN AND PELVIS WITHOUT CONTRAST INDICATION / CLINICAL INFORMATION: acute R sided abdominal pain. TECHNIQUE: Axial CT images were obtained through the abdomen and pelvis without IV contrast. Sagittal and coronal reformatted images. All CT scans at this location are performed using CT dose reduction for ALARA by means of automated exposure control. COMPARISON: Ultrasound right upper quadrant performed earlier today FINDINGS: LOWER CHEST: No significant abnormality. LIVER: No significant abnormality. GALLBLADDER: No significant abnormality. BILE DUCTS: No significant abnormality. PANCREAS: No significant abnormality. SPLEEN: No significant abnormality. ADRENALS: No significant abnormality. RIGHT KIDNEY and URETER: No significant abnormality. LEFT KIDNEY and URETER: No significant abnormality. STOMACH and SMALL BOWEL: The stomach is unremarkable. There is limited evaluation of the small bowel loops without IV or oral contrast. There appears to be mild circumferential thickening of a few small bowel loops in the left abdomen which could be related to an enteritis. There is no evidence for obstruction or pneumatosis. COLON: No significant abnormality. APPENDIX: Not identified, correlate with surgical history. PERITONEUM: No free fluid. No free air. No fluid collection. LYMPH NODES: No significant adenopathy. AORTA and ARTERIES: No significant abnormality. IVC and VEINS: No significant abnormality. URINARY BLADDER: No significant abnormality. REPRODUCTIVE ORGANS: Hysterectomy changes are suspected. No adnexal abnormality is appreciated. ADDITIONAL FINDINGS: None. SKELETAL SYSTEM: No significant abnormality. IMPRESSION: Consider a mild enteritis as described above. No acute inflammatory process is appreciated in the right abdomen. Surgical changes as described. - Medical Decision Making 35-year-old female patient with history of MVP and hypertension presents with complaints of sudden onset of right upper abdominal pain and nausea and vomiting starting yesterday. She also admits to some diarrhea. She denies any melena/hematochezia, mid emesis/coffee-ground emesis, fever/chills/sweats, cough, shortness of breath, or chest pain. She states the pain seems to be pushing on her upper abdomen and cause her heartburn. Has abdominal surgical history includes a partial hysterectomy and tubal ligation. She rates her pain as 8/10 in severity and states it improves with pulling her knees towards her chest while lying down No acute abnormalities noted on labs. Blood pressure improved with pain control. Ultrasound is negative for any acute cholecystitis or other abnormalities. CT abdomen shows possible mild enteritis without other acute findings. Patient remains afebrile and nontachycardic. She is well-appearing. Patient is stable for discharge home. Will treat for viral enteritis. Discussed presumptive diagnosis, care plan, signs and symptoms that should prompt immediate return to the ED, she verbalizes understanding. Patient is to follow-up with her PCP in 3 days. Critical care attestation.: If time is entered above; I have spent that time in minutes in the direct care of this critically ill patient, excluding procedure time. ED Disposition Clinical Impression: Enteritis Disposition: 01 HOME / SELF CARE / HOMELESS Is pt being admited?: No Condition: Stable Instructions: Viral Gastroenteritis, Adult, Abdominal Pain (ED) Prescriptions: predniSONE [Deltasone] 20 mg PO BID #6 tab Famotidine [Pepcid] 20 mg PO BID 7 Days #14 tablet traMADoL [Ultram 50 MG tab] 50 mg PO Q8HR PRN #6 tablet PRN Reason: Pain , Severe (7-10) Ondansetron [Zofran Odt] 4 mg PO Q8HR PRN #15 tab.rapdis PRN Reason: Nausea Referrals: PRIMARY CARE,MD [Primary Care Provider] - 3-5 Days Forms: Work/School Release Form(ED)
[2021-10-05 09:15] LABS: Basophils # (Auto) 0.1 K/mm3 (0.0-0.1); Basophils % (Auto) 1.3 % (0.0-1.8); Eosinophils # (Auto) 0.3 K/mm3 (0.0-0.4); Eosinophils % (Auto) 4.3 % (0.0-4.3); Hematocrit 40.2 % (30.3-42.9); Hemoglobin 13.5 gm/dl (10.1-14.3); Mean Corpuscular HGB Conc 34 % (30-34); Mean Corpuscular Volume 96 fl (79-97); Monocytes # (Auto) 0.6 K/mm3 (0.0-0.8); Monocytes % (Auto) 9.8 % (0.0-7.3); Platelet Count 294 K/mm3 (140-440); Red Blood Count 4.18 M/mm3 (3.65-5.03); Red Cell Distribution Width 12.7 % (13.2-15.2)
--- NOTE | 2021-10-05 09:35 | Ultrasound Report ---
LIMITED RUQ ABDOMINAL ULTRASOUND INDICATION: acute epigastric/RUQ pain. COMPARISON: No relevant prior imaging study available. FINDINGS: Pancreas: Visualized portions show no significant abnormality. Abdominal Aorta: No significant abnormality. IVC: No significant abnormality. Liver: The liver measures 15.6 cm in length. No significant abnormality. Normal hepatopedal blood fl ow in the main portal vein. Gallbladder: No significant abnormality. Bile ducts: No significant abnormality. Common bile duct measures 4.6 mm. Right kidney: No significant abnormality visualized. Free fluid: None. Additional Findings: None. IMPRESSION: No significant abnormality identified. Signer Name: Tevin Lemus Jr, MD Signed: 10/05/2021 9:31 AM Workstation Name: [id number]
[2021-10-05 09:39] LABS: Alanine Aminotransferase 18 units/L (7-56); Albumin 3.9 g/dL (3.9-5); Blood Urea Nitrogen 10 mg/dL (7-17); Calcium 7.8 mg/dL (8.4-10.2); Hemolysis Index 7
[2021-10-05] MEDS ORDERED: FAMOTIDINE 20 MG/2 ML INJ IV ONE (09:42)
[2021-10-05 09:45] LABS: BUN/Creatinine Ratio 20
[2021-10-05 10:21] VITALS: BP 146/106
--- NOTE | 2021-10-05 10:21 | Cat Scan Report ---
CT ABDOMEN AND PELVIS WITHOUT CONTRAST INDICATION / CLINICAL INFORMATION: acute R sided abdominal pain. TECHNIQUE: Axial CT images were obtained through the abdomen and pelvis without IV contrast. Sagittal and huynh l reformatted images. All CT scans at this location are performed using CT dose reduction for ALARA b y means of automated exposure control. COMPARISON: Ultrasound right upper quadrant performed earlier today FINDINGS: LOWER CHEST: No significant abnormality. LIVER: No significant abnormality. GALLBLADDER: No significant abnormality. BILE DUCTS: No significant abnormality. PANCREAS: No significant abnormality. SPLEEN: No significant abnormality. ADRENALS: No significant abnormality. RIGHT KIDNEY and URETER: No significant abnormality. LEFT KIDNEY and URETER: No significant abnormality. STOMACH and SMALL BOWEL: The stomach is unremarkable. There is limited evaluation of the small bowel loops without IV or oral contrast. There appears to be mild circumferential thickening of a few small bowel loops in the left abdomen which could be related to an enteritis. There is no evidence for obs truction or pneumatosis. COLON: No significant abnormality. APPENDIX: Not identified, correlate with surgical history. PERITONEUM: No free fluid. No free air. No fluid collection. LYMPH NODES: No significant adenopathy. AORTA and ARTERIES: No significant abnormality. IVC and VEINS: No significant abnormality. URINARY BLADDER: No significant abnormality. REPRODUCTIVE ORGANS: Hysterectomy changes are suspected. No adnexal abnormality is appreciated. ADDITIONAL FINDINGS: None. SKELETAL SYSTEM: No significant abnormality. IMPRESSION: Consider a mild enteritis as described above. No acute inflammatory process is appreciated in the rig ht abdomen. Surgical changes as described. Signer Name: Tevin Lemus Jr, MD Signed: 10/05/2021 10:16 AM Workstation Name: [id number]
[2021-10-05] MEDS ORDERED: KETOROLAC 30 MG/1 ML INJ IV ONE (10:42)
== END 2021-10-05 11:54 | disposition home or self-care (01) ==
LOC: ED 07:10
DX: K52.9 Noninfective gastroenteritis and colitis, unspecified (principal); I10 Essential (primary) hypertension; Z86.73 Personal history of transient ischemic attack (TIA), and cerebral infarction without residual deficits; Z91.041 Radiographic dye allergy status; Z88.8 Allergy status to other drugs, medicaments and biological substances; Z88.2 Allergy status to sulfonamides; Z88.0 Allergy status to penicillin
CPT/HCPCS: 36415; 74176; 76705; 80053; 81001; 83690; 84703; 85025; 96361; 96374; 96375; 99284; J1885; J2270; J2405; J3490; J7030; Q0162

== ENCOUNTER 2021-10-20 09:19 | Emergency (ER) | payer OTHER ==
--- NOTE | 2021-10-20 10:23 | Event Note ---
ED Screening Note Date of service: 10/20/21 Time: 10:22 ED Screening Note: 35-year-old female presents to the emergency room for cough pleuritic chest pain sneezing. She is not vaccinated for Covid. She has a significant past medical history of 3 MIs and one stroke. She has congenital heart disease. She has hypertension and is on 6 different blood pressure medications which she does not know the name of them. She states that the pain is on the left side and radiates down her hand. Patient reports she has a partial hysterectomy. Blood pressure 170/122 with a heart rate of 134. This initial assessment/diagnostic orders/clinical plan/treatment(s) is/are subject to change based on patients health status, clinical progression and re- assessment by fellow clinical providers in the ED. Further treatment and workup at subsequent clinical providers discretion. Patient/guardian urged not to elope from the ED as their condition may be serious if not clinically assessed and managed. Initial orders include: Cardiac protocol in place. Patient be evaluated by .
[2021-10-20 10:44] LABS: Basophils # (Auto) 0.1 K/mm3 (0.0-0.1); Basophils % (Auto) 0.4 % (0.0-1.8); Eosinophils # (Auto) 0.1 K/mm3 (0.0-0.4); Eosinophils % (Auto) 0.9 % (0.0-4.3); Hematocrit 40.8 % (30.3-42.9); Hemoglobin 14.1 gm/dl (10.1-14.3); Lymphocytes # (Auto) 0.4 K/mm3 (1.2-5.4); Lymphocytes % (Auto) 3.1 % (13.4-35.0); Mean Corpuscular HGB Conc 35 % (30-34); Mean Corpuscular Volume 95 fl (79-97); Monocytes % (Auto) 7.1 % (0.0-7.3); Platelet Count 290 K/mm3 (140-440); Red Blood Count 4.32 M/mm3 (3.65-5.03); Red Cell Distribution Width 12.8 % (13.2-15.2)
--- NOTE | 2021-10-20 10:49 | XRay Report ---
CHEST 2 VIEWS INDICATION / CLINICAL INFORMATION: sob,cough and rales. COMPARISON: 06/21/2019 FINDINGS: SUPPORT DEVICES: None. HEART / MEDIASTINUM: No significant abnormality. LUNGS / PLEURA: No significant pulmonary or pleural abnormality. No pneumothorax. ADDITIONAL FINDINGS: No significant additional findings. IMPRESSION: 1. No acute findings. Signer Name: Wild Crouch MD Signed: 10/20/2021 10:44 AM Workstation Name: [id number]
[2021-10-20] MEDS ORDERED: IPRATROPIUM/ALBUTEROL SULFATE 3 ML AMPUL.NEB IH ONE (11:03)
[2021-10-20] MEDS ORDERED: SODIUM CHLORIDE 0.9% 1000 ML 1,000 ML IV ONE (11:04)
[2021-10-20] MEDS ORDERED: HYDROcodone/ACETAMINOPHEN 10-325MG TAB PO ONE (11:04)
[2021-10-20] MEDS ORDERED: methylPREDNISolone Sod Succinate 125 MG/2 ML INJ IM ONE (11:04)
[2021-10-20] MEDS ORDERED: ONDANSETRON 4 MG ODT TAB PO ONE (11:04)
[2021-10-20 11:06] LABS: Alanine Aminotransferase 14 units/L (7-56); Albumin 4.5 g/dL (3.9-5); Blood Urea Nitrogen 12 mg/dL (7-17); Calcium 9.6 mg/dL (8.4-10.2); Hemolysis Index 13
[2021-10-20 11:08] LABS: BUN/Creatinine Ratio 17
[2021-10-20] MEDS ORDERED: guaiFENesin/CODEINE 100-10MG ORAL LIQD 5 ML PO ONE (12:00)
[2021-10-20] MEDS ORDERED: ONDANSETRON 4 MG/2 ML INJ IV ONE (12:34)
[2021-10-20] MEDS ORDERED: KETOROLAC 60 MG/2 ML INJ IVP ONE (12:34)
--- NOTE | 2021-10-20 14:00 | Emergency Department Report ---
ED General Adult HPI - General Chief complaint: Upper Respiratory Infection Stated complaint: COUGH AND CONGETION Time Seen by Provider: 10/20/21 10:51 Source: patient Mode of arrival: Ambulatory Limitations: No Limitations - History of Present Illness Initial comments: The patient presents to the emergency department with a chief complaint of chest pain with cough for the last 4 days. Patient does endorse having a sick contact at home who was recently diagnosed with bronchitis. Patient states she has had an CT in the past and has a history of mitral valve prolapse. She states this pain is totally different than her previous CT. Patient complains of diffuse chest pain with coughing. She does states she has some shortness of breath when walking but thinks this is due to her upper respiratory issues. She denies headache or abdominal pain. -: Gradual Location: chest Radiation: non-radiation Severity scale (0 -10): 5 Quality: sharp Consistency: constant Improves with: none Worsens with: none Associated Symptoms: denies other symptoms. denies: fever/chills Treatments Prior to Arrival: NSAID - Related Data Previous Rx's Medication Instructions Recorded Last Taken Type Aspirin EC [Ecotrin] 325 mg PO QDAY #30 tablet.dr 06/22/19 Unknown Rx Spironolactone [Aldactone] 12.5 mg PO QDAY #7 tablet 06/22/19 Unknown Rx amLODIPine [Norvasc] 10 mg PO DAILY #7 tab 06/22/19 Unknown Rx buPROPion SR [Wellbutrin SR] 150 mg PO BID #14 tab 06/22/19 Unknown Rx hydroCHLOROthiazide [Hctz] 12.5 mg PO QDAY #7 capsule 06/22/19 Unknown Rx lisinopriL [Zestril TAB] 40 mg PO QDAY #7 tablet 06/22/19 Unknown Rx Acetaminophen/Codeine [Tylenol 1 tab PO Q4HR PRN #12 tablet 12/07/20 Unknown Rx /Codeine # 3 tab] methylPREDNISolone [Medrol 4MG 4 mg PO DAILY #1 tab.ds.pk 12/07/20 Unknown Rx DOSEPAK (21 tabs)] Doxycycline Hyclate [Doxycycline 100 mg PO BID 7 Days #14 tab 04/05/21 Unknown Rx Hyclate TAB] Mupirocin [Bactroban 2% OINT] 1 applic TP TID #1 tube 04/05/21 Unknown Rx Famotidine [Pepcid] 20 mg PO BID 7 Days #14 tablet 10/05/21 Unknown Rx Ondansetron [Zofran Odt] 4 mg PO Q8HR PRN #15 tab.rapdis 10/05/21 Unknown Rx predniSONE [Deltasone] 20 mg PO BID #6 tab 10/05/21 Unknown Rx traMADoL [Ultram 50 MG tab] 50 mg PO Q8HR PRN #6 tablet 10/05/21 Unknown Rx Acetaminophen/Codeine [Tylenol 1 tab PO Q6H PRN #15 tab 10/20/21 Unknown Rx /Codeine # 3 tab] Acetaminophen/Codeine [Tylenol 1 tab PO Q6H PRN #15 tab 10/20/21 Unknown Rx /Codeine # 3 tab] Albuterol Mdi (or & Nicu Only) 2 puff IH Q4HR PRN #1 inhalation 10/20/21 Unknown Rx [ProAir HFA Inhaler] Albuterol Mdi (or & Nicu Only) 2 puff IH Q4HR PRN #1 inhalation 10/20/21 Unknown Rx [ProAir HFA Inhaler] Codeine Phosphate/Guaifenesin 180 ml PO Q12HR PRN #180 liquid 10/20/21 Unknown Rx [Guaifenesin-Codeine Syrup] Codeine Phosphate/Guaifenesin 180 ml PO Q12HR PRN #180 liquid 10/20/21 Unknown Rx [Guaifenesin-Codeine Syrup] Doxycycline Monohydrate 100 mg PO BID #14 capsule 10/20/21 Unknown Rx [Doxycycline Monohydrate CAP] Doxycycline Monohydrate 100 mg PO BID #14 capsule 10/20/21 Unknown Rx [Doxycycline Monohydrate CAP] Ondansetron [Zofran Odt] 4 mg PO Q4HR PRN #20 tab.rapdis 10/20/21 Unknown Rx Ondansetron [Zofran Odt] 4 mg PO Q4HR PRN #20 tab.rapdis 10/20/21 Unknown Rx predniSONE [Deltasone] 20 mg PO DAILY #15 tablet 10/20/21 Unknown Rx predniSONE [Deltasone] 20 mg PO DAILY #15 tablet 10/20/21 Unknown Rx Allergies Allergy/AdvReac Type Severity Reaction Status Date / Time iodine Allergy Itching Verified 10/20/21 09:37 metoclopramide [From Reglan] Allergy Vomiting Verified 10/20/21 09:37 promethazine [From Phenergan] Allergy Vomiting Verified 10/20/21 09:37 sulfamethoxazole Allergy Hives Verified 10/20/21 09:37 [From Bactrim] trimethoprim [From Bactrim] Allergy Hives Verified 10/20/21 09:37 amoxicillin [From Amoxil] AdvReac Vomiting Verified 10/20/21 09:37 ED Review of Systems ROS: Stated complaint: COUGH AND CONGETION Other details as noted in HPI Comment: All other systems reviewed and negative Constitutional: denies: chills, fever Eyes: denies: eye pain, eye discharge, vision change ENT: denies: ear pain, throat pain Respiratory: cough. denies: shortness of breath, wheezing Cardiovascular: chest pain. denies: palpitations Endocrine: no symptoms reported Gastrointestinal: denies: abdominal pain, nausea, diarrhea Genitourinary: denies: urgency, dysuria, discharge Musculoskeletal: denies: back pain, joint swelling, arthralgia Skin: denies: rash, lesions Neurological: denies: headache, weakness, paresthesias Psychiatric: denies: anxiety, depression Hematological/Lymphatic: denies: easy bleeding, easy bruising ED Past Medical Hx - Past Medical History Hx Hypertension: Yes (States she stopped taking her BP medications) Hx CVA: Yes (TIA) Hx Heart Attack/AMI: Yes Additional medical history: enlarged heart, ovarian cyst, kidney stones, - Surgical History Additional Surgical History: tonsils, tubal ligation, partial hysterectomy - Social History Smoking Status: Current Every Day Smoker Substance Use Type: Alcohol - Medications Home Medications: Home Medications Medication Instructions Recorded Confirmed Last Taken Type Aspirin EC [Ecotrin] 325 mg PO QDAY #30 tablet. 06/22/19 Unknown Rx Spironolactone [Aldactone] 12.5 mg PO QDAY #7 tablet 06/22/19 Unknown Rx amLODIPine [Norvasc] 10 mg PO DAILY #7 tab 06/22/19 Unknown Rx buPROPion SR [Wellbutrin SR] 150 mg PO BID #14 tab 06/22/19 Unknown Rx hydroCHLOROthiazide [Hctz] 12.5 mg PO QDAY #7 capsule 06/22/19 Unknown Rx lisinopriL [Zestril TAB] 40 mg PO QDAY #7 tablet 06/22/19 Unknown Rx Acetaminophen/Codeine [Tylenol 1 tab PO Q4HR PRN #12 tablet 12/07/20 Unknown Rx /Codeine # 3 tab] methylPREDNISolone [Medrol 4MG 4 mg PO DAILY #1 tab.ds.pk 12/07/20 Unknown Rx DOSEPAK (21 tabs)] Doxycycline Hyclate [Doxycycline 100 mg PO BID 7 Days #14 tab 04/05/21 Unknown Rx Hyclate TAB] Mupirocin [Bactroban 2% OINT] 1 applic TP TID #1 tube 04/05/21 Unknown Rx Famotidine [Pepcid] 20 mg PO BID 7 Days #14 tablet 10/05/21 Unknown Rx Ondansetron [Zofran Odt] 4 mg PO Q8HR PRN #15 tab.rapdis 10/05/21 Unknown Rx predniSONE [Deltasone] 20 mg PO BID #6 tab 10/05/21 Unknown Rx traMADoL [Ultram 50 MG tab] 50 mg PO Q8HR PRN #6 tablet 10/05/21 Unknown Rx Acetaminophen/Codeine [Tylenol 1 tab PO Q6H PRN #15 tab 10/20/21 Unknown Rx /Codeine # 3 tab] Acetaminophen/Codeine [Tylenol 1 tab PO Q6H PRN #15 tab 10/20/21 Unknown Rx /Codeine # 3 tab] Albuterol Mdi (or & Nicu Only) 2 puff IH Q4HR PRN #1 inhalation 10/20/21 Unknown Rx [ProAir HFA Inhaler] Albuterol Mdi (or & Nicu Only) 2 puff IH Q4HR PRN #1 inhalation 10/20/21 Unknown Rx [ProAir HFA Inhaler] Codeine Phosphate/Guaifenesin 180 ml PO Q12HR PRN #180 liquid 10/20/21 Unknown Rx [Guaifenesin-Codeine Syrup] Codeine Phosphate/Guaifenesin 180 ml PO Q12HR PRN #180 liquid 10/20/21 Unknown Rx [Guaifenesin-Codeine Syrup] Doxycycline Monohydrate 100 mg PO BID #14 capsule 10/20/21 Unknown Rx [Doxycycline Monohydrate CAP] Doxycycline Monohydrate 100 mg PO BID #14 capsule 10/20/21 Unknown Rx [Doxycycline Monohydrate CAP] Ondansetron [Zofran Odt] 4 mg PO Q4HR PRN #20 tab.rapdis 10/20/21 Unknown Rx Ondansetron [Zofran Odt] 4 mg PO Q4HR PRN #20 tab.rapdis 10/20/21 Unknown Rx predniSONE [Deltasone] 20 mg PO DAILY #15 tablet 10/20/21 Unknown Rx predniSONE [Deltasone] 20 mg PO DAILY #15 tablet 10/20/21 Unknown Rx ED Physical Exam - General Limitations: No Limitations General appearance: alert, in no apparent distress - Head Head exam: Present: atraumatic, normocephalic - Eye Eye exam: Present: normal appearance, PERRL, EOMI - ENT ENT exam: Present: mucous membranes dry - Neck Neck exam: Present: normal inspection - Respiratory Respiratory exam: Present: wheezes, chest wall tenderness, other (End expiratory wheezing). Absent: respiratory distress - Cardiovascular Cardiovascular Exam: Present: normal rhythm, tachycardia. Absent: systolic murmur, diastolic murmur, rubs, gallop - GI/Abdominal GI/Abdominal exam: Present: soft, normal bowel sounds. Absent: distended, tenderness - Extremities Exam Extremities exam: Present: normal inspection - Back Exam Back exam: Present: normal inspection - Neurological Exam Neurological exam: Present: alert, oriented X3, CN II-XII intact. Absent: motor sensory deficit - Psychiatric Psychiatric exam: Present: normal affect, normal mood - Skin Skin exam: Present: warm, dry, intact, normal color. Absent: rash ED Course Vital Signs 10/20/21 10/20/21 10:06 11:20 Pulse Rate 134 H Respiratory 16 Rate [Bilateral ] Blood Pressure 170/122 [170/122] O2 Sat by Pulse 98 Oximetry ED Medical Decision Making - Lab Data Result diagrams: 10/20/21 10:26 10/20/21 10:26 Lab Results 10/20/21 10/20/21 Range/Units 10:26 10:26 WBC 14.6 H (4.5-11.0) K/mm3 RBC 4.32 (3.65-5.03) M/mm3 Hgb 14.1 (10.1-14.3) gm/dl Hct 40.8 (30.3-42.9) % MCV 95 (79-97) fl MCH 33 H (28-32) pg MCHC 35 H (30-34) % RDW 12.8 L (13.2-15.2) % Plt Count 290 (140-440) K/mm3 Lymph % (Auto) 3.1 L (13.4-35.0) % [place] % (Auto) 7.1 (0.0-7.3) % Eos % (Auto) 0.9 (0.0-4.3) % Baso % (Auto) 0.4 (0.0-1.8) % Lymph # (Auto) 0.4 L (1.2-5.4) K/mm3 [place] # (Auto) 1.0 H (0.0-0.8) K/mm3 Eos # (Auto) 0.1 (0.0-0.4) K/mm3 Baso # (Auto) 0.1 (0.0-0.1) K/mm3 Seg Neutrophils % 88.5 H (40.0-70.0) % Seg Neutrophils # 13.0 H (1.8-7.7) K/mm3 Sodium 140 (137-145) mmol/L Potassium 4.6 (3.6-5.0) mmol/L Chloride 104.6 (98-107) mmol/L Carbon Dioxide 22 (22-30) mmol/L Anion Gap 18 mmol/L BUN 12 (7-17) mg/dL Creatinine 0.7 (0.6-1.2) mg/dL Estimated GFR > 60 ml/min BUN/Creatinine Ratio 17 % Glucose 82 (65-100) mg/dL Calcium 9.6 (8.4-10.2) mg/dL Total Bilirubin 0.20 (0.1-1.2) mg/dL AST 13 (5-40) units/L ALT 14 (7-56) units/L Alkaline Phosphatase 69 (35-129) units/L Troponin T < 0.010 (0.00-0.029) ng/mL Total Protein 6.9 (6.3-8.2) g/dL Albumin 4.5 (3.9-5) g/dL Albumin/Globulin Ratio 1.9 % - EKG Data -: EKG Interpreted by Ga EKG shows normal: sinus rhythm Rate: tachycardia - EKG Data Interpretation: other (With occasional PVCs) - Radiology Data Radiology results: report reviewed - Medical Decision Making The patient received a breathing treatment as well as IV fluids and steroids. Critical care attestation.: If time is entered above; I have spent that time in minutes in the direct care of this critically ill patient, excluding procedure time. ED Disposition Clinical Impression: Bronchitis, Pleurisy, Nonspecific chest pain Disposition: 01 HOME / SELF CARE / HOMELESS Is pt being admited?: No Does the pt Need Aspirin: No Condition: Stable Instructions: Chronic Bronchitis (ED), Nonspecific Chest Pain, Adult, Chest Wall Pain, [id number], Pleurisy Additional Instructions: return if worse Referrals: PRIMARY CARE, [Primary Care Provider] - 3-5 Days LAURA MCHUGH MD [Staff Physician] - 3-5 Days Time of Disposition: 14:27
--- NOTE | 2021-10-20 14:19 | Nuclear Medicine Report ---
NUCLEAR MEDICINE PERFUSION LUNG SCAN INDICATION / CLINICAL INFORMATION: SOB/EVALUATE FOR PE. TECHNIQUE: 5.2 mCi of Tc-99m MAA were given by IV. COMPARISON: Chest radiograph dated 10/20/2021. FINDINGS: PERFUSION: No significant perfusion defects. ADDITIONAL FINDINGS: None. IMPRESSION: 1. Low probability for pulmonary embolism. Signer Name: Damion Braden MD Signed: 10/20/2021 2:14 PM Workstation Name: [id number]
[2021-10-20 15:07] VITALS: BP 136/88
--- NOTE | 2021-10-23 10:39 | Electrocardiograph Report ---
Test Date: 2021-10-20 Test Time: 09:57:50 Pat Name: MCKENNA SKY Department: Room: Gender: F Caddymaster: DOMINGO : 1985 Requested By: HALIMA RIBEIRO Order Number: [id number] Reading MD: Arthur Guevara Measurements Intervals [place] Rate: 114 P: 80 CO: 162 QRS: 104 QRSD: 98 T: 51 QT: 331 QTc: 457 Interpretive Statements Sinus tachycardia Rightward axis deviation No previous ECG available for comparison Electronically Signed On 10-23-2021 10:39:04 EST by Arthur Guevara
== END 2021-10-20 15:47 | disposition home or self-care (01) ==
LOC: ED 09:19
DX: J40 Bronchitis, not specified as acute or chronic (principal); R09.1 Pleurisy; R07.9 Chest pain, unspecified; Z88.2 Allergy status to sulfonamides; Z88.0 Allergy status to penicillin
CPT/HCPCS: 36415; 71046; 78580; 80053; 84484; 85025; 93005; 94640; 96361; 96372; 96374; 96375; 99284; A9540; J1885; J2405; J2930; J7030; 94644; J3490; Q0162

== ENCOUNTER 2021-12-30 19:44 | Emergency (ER) | payer OTHER ==
[2021-12-30 20:21] VITALS: BP 160/119
[2021-12-30] MEDS ORDERED: IBUPROFEN 600 MG TAB PO ONE (22:06)
[2021-12-30] MEDS ORDERED: ONDANSETRON 4 MG ODT TAB PO ONE (22:07)
[2021-12-30] MEDS ORDERED: HYDROcodone/ACETAMINOPHEN 5-325 MG TAB PO ONE (22:07)
--- NOTE | 2021-12-30 22:36 | Emergency Department Report ---
ED Lower Extremity HPI - General Chief Complaint: Extremity Injury, Lower Stated Complaint: ANKLE PAIN Source: patient Mode of arrival: Ambulatory Limitations: Other - History of Present Illness Initial Comments: Patient is a 36-year-old female with a history of hypertension and not on medications, CVA, CHF who presents to the ED with complaint of acute onset persistent right ankle and foot pain after she twisted her right foot and ankle while walking the dogs 2 days ago. Patient states that the pain has been constant and persistent especially worse with any active range of motion or ambulation. Patient states that she has been applying ice and elevating the right ankle with no relief. Patient denies fall, head or neck injuries, back pain, chest pain or shortness of breath, nausea and vomiting, abdominal pain, change in vision, numbness and tingling or weakness of upper and lower extremities bilaterally. MD Complaint: ankle injury (right and foot pain), foot injury (right ankle and foot pain) -: Sudden, days(s) (2) Injury: Ankle: Right (pain), Foot: Right (pain) Type of Injury: eversion Place: home Severity: severe Severity scale (0 -10): 8 Improves With: nothing Worsens With: weight bearing, movement, palpation Context: walking Associated Symptoms: snap/pop sensation, able to partially bear weight. denies: numbness, tingling, unable to bear weight - Related Data Previous Rx's Medication Instructions Recorded Last Taken Type Aspirin EC [Ecotrin] 325 mg PO QDAY #30 tablet. 06/22/19 Unknown Rx Spironolactone [Aldactone] 12.5 mg PO QDAY #7 tablet 06/22/19 Unknown Rx amLODIPine [Norvasc] 10 mg PO DAILY #7 tab 06/22/19 Unknown Rx buPROPion SR [Wellbutrin SR] 150 mg PO BID #14 tab 06/22/19 Unknown Rx hydroCHLOROthiazide [Hctz] 12.5 mg PO QDAY #7 capsule 06/22/19 Unknown Rx lisinopriL [Zestril TAB] 40 mg PO QDAY #7 tablet 06/22/19 Unknown Rx Acetaminophen/Codeine [Tylenol 1 tab PO Q4HR PRN #12 tablet 12/07/20 Unknown Rx /Codeine # 3 tab] methylPREDNISolone [Medrol 4MG 4 mg PO DAILY #1 tab.ds.pk 12/07/20 Unknown Rx DOSEPAK (21 tabs)] Doxycycline Hyclate [Doxycycline 100 mg PO BID 7 Days #14 tab 04/05/21 Unknown Rx Hyclate TAB] Mupirocin [Bactroban 2% OINT] 1 applic TP TID #1 tube 04/05/21 Unknown Rx Famotidine [Pepcid] 20 mg PO BID 7 Days #14 tablet 10/05/21 Unknown Rx Ondansetron [Zofran Odt] 4 mg PO Q8HR PRN #15 tab.rapdis 10/05/21 Unknown Rx predniSONE [Deltasone] 20 mg PO BID #6 tab 10/05/21 Unknown Rx Acetaminophen/Codeine [Tylenol 1 tab PO Q6H PRN #15 tab 10/20/21 Unknown Rx /Codeine # 3 tab] Acetaminophen/Codeine [Tylenol 1 tab PO Q6H PRN #15 tab 10/20/21 Unknown Rx /Codeine # 3 tab] Albuterol Mdi (or & Nicu Only) 2 puff IH Q4HR PRN #1 inhalation 10/20/21 Unknown Rx [ProAir HFA Inhaler] Albuterol Mdi (or & Nicu Only) 2 puff IH Q4HR PRN #1 inhalation 10/20/21 Unknown Rx [ProAir HFA Inhaler] Codeine Phosphate/Guaifenesin 180 ml PO Q12HR PRN #180 liquid 10/20/21 Unknown Rx [Guaifenesin-Codeine Syrup] Codeine Phosphate/Guaifenesin 180 ml PO Q12HR PRN #180 liquid 10/20/21 Unknown Rx [Guaifenesin-Codeine Syrup] Doxycycline Monohydrate 100 mg PO BID #14 capsule 10/20/21 Unknown Rx [Doxycycline Monohydrate CAP] Doxycycline Monohydrate 100 mg PO BID #14 capsule 10/20/21 Unknown Rx [Doxycycline Monohydrate CAP] Ondansetron [Zofran Odt] 4 mg PO Q4HR PRN #20 tab.rapdis 10/20/21 Unknown Rx Ondansetron [Zofran Odt] 4 mg PO Q4HR PRN #20 tab.rapdis 10/20/21 Unknown Rx predniSONE [Deltasone] 20 mg PO DAILY #15 tablet 10/20/21 Unknown Rx predniSONE [Deltasone] 20 mg PO DAILY #15 tablet 10/20/21 Unknown Rx Baclofen [Lioresal] 10 mg PO Q8H PRN #15 tab 12/30/21 Unknown Rx Ibuprofen [Motrin] 600 mg PO Q8H PRN #30 tablet 12/30/21 Unknown Rx traMADoL [Ultram 50 MG tab] 50 mg PO Q8HR PRN #12 tablet 12/30/21 Unknown Rx Allergies Allergy/AdvReac Type Severity Reaction Status Date / Time iodine Allergy Itching Verified 10/20/21 09:37 metoclopramide [From Reglan] Allergy Vomiting Verified 10/20/21 09:37 promethazine [From Phenergan] Allergy Vomiting Verified 10/20/21 09:37 sulfamethoxazole Allergy Hives Verified 10/20/21 09:37 [From Bactrim] trimethoprim [From Bactrim] Allergy Hives Verified 10/20/21 09:37 amoxicillin [From Amoxil] AdvReac Vomiting Verified 10/20/21 09:37 ED Review of Systems ROS: Stated complaint: ANKLE PAIN Other details as noted in HPI Constitutional: denies: chills, fever Eyes: denies: eye pain, eye discharge, vision change ENT: denies: ear pain, throat pain Respiratory: denies: cough, shortness of breath, wheezing Cardiovascular: denies: chest pain, palpitations Endocrine: no symptoms reported Gastrointestinal: denies: abdominal pain, nausea, vomiting, diarrhea Genitourinary: denies: urgency, dysuria, discharge Musculoskeletal: arthralgia (right ankle and foot pain). denies: back pain, joint swelling Skin: denies: rash, lesions Neurological: denies: headache, weakness, paresthesias Psychiatric: denies: anxiety, depression Hematological/Lymphatic: denies: easy bleeding, easy bruising ED Past Medical Hx - Past Medical History Previous Medical History?: Yes Hx Hypertension: Yes (States she stopped taking her BP medications) Hx CVA: Yes (TIA) Hx Heart Attack/AMI: Yes Additional medical history: enlarged heart, ovarian cyst, kidney stones, - Surgical History Past Surgical History?: Yes Additional Surgical History: tonsils, tubal ligation, partial hysterectomy - Social History Smoking Status: Never Smoker Substance Use Type: None - Medications Home Medications: Home Medications Medication Instructions Recorded Confirmed Last Taken Type Aspirin EC [Ecotrin] 325 mg PO QDAY #30 tablet. 06/22/19 Unknown Rx Spironolactone [Aldactone] 12.5 mg PO QDAY #7 tablet 06/22/19 Unknown Rx amLODIPine [Norvasc] 10 mg PO DAILY #7 tab 06/22/19 Unknown Rx buPROPion SR [Wellbutrin SR] 150 mg PO BID #14 tab 06/22/19 Unknown Rx hydroCHLOROthiazide [Hctz] 12.5 mg PO QDAY #7 capsule 06/22/19 Unknown Rx lisinopriL [Zestril TAB] 40 mg PO QDAY #7 tablet 06/22/19 Unknown Rx Acetaminophen/Codeine [Tylenol 1 tab PO Q4HR PRN #12 tablet 12/07/20 Unknown Rx /Codeine # 3 tab] methylPREDNISolone [Medrol 4MG 4 mg PO DAILY #1 tab.ds.pk 12/07/20 Unknown Rx DOSEPAK (21 tabs)] Doxycycline Hyclate [Doxycycline 100 mg PO BID 7 Days #14 tab 04/05/21 Unknown Rx Hyclate TAB] Mupirocin [Bactroban 2% OINT] 1 applic TP TID #1 tube 04/05/21 Unknown Rx Famotidine [Pepcid] 20 mg PO BID 7 Days #14 tablet 10/05/21 Unknown Rx Ondansetron [Zofran Odt] 4 mg PO Q8HR PRN #15 tab.rapdis 10/05/21 Unknown Rx predniSONE [Deltasone] 20 mg PO BID #6 tab 10/05/21 Unknown Rx Acetaminophen/Codeine [Tylenol 1 tab PO Q6H PRN #15 tab 10/20/21 Unknown Rx /Codeine # 3 tab] Acetaminophen/Codeine [Tylenol 1 tab PO Q6H PRN #15 tab 10/20/21 Unknown Rx /Codeine # 3 tab] Albuterol Mdi (or & Nicu Only) 2 puff IH Q4HR PRN #1 inhalation 10/20/21 Unknown Rx [ProAir HFA Inhaler] Albuterol Mdi (or & Nicu Only) 2 puff IH Q4HR PRN #1 inhalation 10/20/21 Unknown Rx [ProAir HFA Inhaler] Codeine Phosphate/Guaifenesin 180 ml PO Q12HR PRN #180 liquid 10/20/21 Unknown Rx [Guaifenesin-Codeine Syrup] Codeine Phosphate/Guaifenesin 180 ml PO Q12HR PRN #180 liquid 10/20/21 Unknown Rx [Guaifenesin-Codeine Syrup] Doxycycline Monohydrate 100 mg PO BID #14 capsule 10/20/21 Unknown Rx [Doxycycline Monohydrate CAP] Doxycycline Monohydrate 100 mg PO BID #14 capsule 10/20/21 Unknown Rx [Doxycycline Monohydrate CAP] Ondansetron [Zofran Odt] 4 mg PO Q4HR PRN #20 tab.rapdis 10/20/21 Unknown Rx Ondansetron [Zofran Odt] 4 mg PO Q4HR PRN #20 tab.rapdis 10/20/21 Unknown Rx predniSONE [Deltasone] 20 mg PO DAILY #15 tablet 10/20/21 Unknown Rx predniSONE [Deltasone] 20 mg PO DAILY #15 tablet 10/20/21 Unknown Rx Baclofen [Lioresal] 10 mg PO Q8H PRN #15 tab 12/30/21 Unknown Rx Ibuprofen [Motrin] 600 mg PO Q8H PRN #30 tablet 12/30/21 Unknown Rx traMADoL [Ultram 50 MG tab] 50 mg PO Q8HR PRN #12 tablet 12/30/21 Unknown Rx ED Physical Exam - General Limitations: Other General appearance: alert, in no apparent distress - Head Head exam: Present: atraumatic, normocephalic, normal inspection - Eye Eye exam: Present: normal appearance, PERRL, EOMI Pupils: Present: normal accommodation - ENT ENT exam: Present: normal exam, normal orophraynx, mucous membranes moist, TM's normal bilaterally, normal external ear exam - Neck Neck exam: Present: normal inspection, full ROM. Absent: tenderness - Respiratory Respiratory exam: Present: normal lung sounds bilaterally. Absent: respiratory distress, wheezes, rales, rhonchi, chest wall tenderness, accessory muscle use, decreased breath sounds, prolonged expiratory - Cardiovascular Cardiovascular Exam: Present: regular rate, normal rhythm, normal heart sounds. Absent: systolic murmur, diastolic murmur, rubs, gallop - GI/Abdominal GI/Abdominal exam: Present: soft, normal bowel sounds. Absent: tenderness, guarding, rebound, hyperactive bowel sounds, hypoactive bowel sounds, organomegaly, bruit - Extremities Exam Extremities exam: Present: normal inspection, tenderness (Palpable right ankle and foot tenderness with limited range of motion due to pain), normal capillary refill. Absent: full ROM (Limited range of motion of right ankle due to pain), pedal edema, joint swelling, calf tenderness - Back Exam Back exam: Present: normal inspection, full ROM. Absent: tenderness, CVA tenderness (R), CVA tenderness (L), muscle spasm, paraspinal tenderness, vertebral tenderness - Neurological Exam Neurological exam: Present: alert, oriented X3, CN II-XII intact, normal gait, reflexes normal - Psychiatric Psychiatric exam: Present: normal affect, normal mood - Skin Skin exam: Present: warm, dry, intact, normal color. Absent: rash ED Course Vital Signs 12/30/21 12/30/21 20:19 22:27 Temperature 98.3 F Pulse Rate 88 Respiratory 18 18 Rate Blood Pressure 160/119 O2 Sat by Pulse 100 Oximetry ED Lower Extremity MDM - Radiology Data Radiology results: report reviewed, image reviewed [facility] [address] [place] [address] XRay Report Signed Patient: MCKENNA SKY MR#: [id number] : 1985 Acct:[id number] Age/Sex: 36 / F ADM Date: 12/30/21 Loc: ED Attending Dr: Ordering Physician: PAUL HARVEY Date of Service: 12/30/21 Procedure(s): XR foot 3+V RT Accession Number(s): [id number] cc: PAUL HARVEY Fluoro Time In Minutes: RIGHT FOOT 3 VIEW(S) INDICATION / CLINICAL INFORMATION: Pain - Injury COMPARISON: None available. FINDINGS: BONES / JOINT(S): No acute fracture or subluxation. No significant arthritis. SOFT TISSUES: No significant abnormality. ADDITIONAL FINDINGS: None. IMPRESSION: 1. No acute pathology. No significant abnormality. Signer Name: Gloria Salazar II, MD Signed: 12/30/2021 10:36 PM Workstation Name: [id number] Transcribed By: BRANDY Dictated By: GLORIA SALAZAR II, MD Electronically Authenticated By: GLORIA SALAZAR II, MD Signed Date/Time: 12/30/212235 DD/ 34 TD/TT: [facility] [address] [place] [address] XRay Report Signed Patient: MCKENNA SKY MR#: [id number] : 1985 Acct:[id number] Age/Sex: 36 / F ADM Date: 12/30/21 Loc: ED Attending Dr: Ordering Physician: PAUL HARVEY Date of Service: 12/30/21 Procedure(s): XR ankle 3+V RT Accession Number(s): [id number] cc: PAUL HARVEY Fluoro Time In Minutes: RIGHT ANKLE 4 VIEW(S) INDICATION / CLINICAL INFORMATION: Pain - injury COMPARISON: None available. FINDINGS: BONES / JOINT(S): No acute fracture or subluxation. No significant arthritis. SOFT TISSUES: No significant abnormality. ADDITIONAL FINDINGS: None. IMPRESSION: No acute pathology. Signer Name: Gloria Salazar II, MD Signed: 12/30/2021 10:35 PM Workstation Name: [id number] Transcribed By: BRANDY Dictated By: GLORIA SALAZAR II, MD Electronically Authenticated By: GLORIA SALAZAR II, MD Signed Date/Time: 12/30/212234 DD/ 32 TD/TT: - Medical Decision Making This is a 36-year-old female with a history of hypertension and not on medications, CVA, CHF who presents to the ED with complaint of acute onset persistent right ankle and foot pain after she twisted her right foot and ankle while walking the dogs 2 days ago. Patient states that the pain has been constant and persistent especially worse with any active range of motion or ambulation. Patient states that she has been applying ice and elevating the right ankle with no relief. In the ED, patient is alert and oriented x3 and is not in any distress. Patient appears to be in significant pain. Patient was treated for pain in the ED. Right ankle and foot x-rays showed no acute fractures or subluxations or any acute abnormalities. Patient right foot and ankle was splinted with James wrap and the patient also fitted with crutches. Patient will discharge home on pain medications and advised to follow-up with her primary care physician in 7 to 10 days for reevaluation or return to the ED immediately if symptoms get worse. - Differential Diagnosis ankle fracture; ankle sprain; foot sprain; foot fracture Critical care attestation.: If time is entered above; I have spent that time in minutes in the direct care of this critically ill patient, excluding procedure time. ED Disposition Clinical Impression: Sprain of right ankle Qualifiers: Encounter type: initial encounter Involved ligament of ankle: unspecified ligament Qualified Code(s): S93.401A - Sprain of unspecified ligament of right ankle, initial encounter Sprain of right foot Qualifiers: Encounter type: initial encounter Qualified Code(s): S93.601A - Unspecified sprain of right foot, initial encounter Disposition: 01 HOME / SELF CARE / HOMELESS Is pt being admited?: No Does the pt Need Aspirin: No Condition: Stable Instructions: Ankle Sprain, [id number], Foot Sprain Additional Instructions: Take medication with food, drink plenty of fluids and follow-up with your primary care physician in 7 to 10 days for reevaluation. Return to the ED immediately if symptoms get worse. Prescriptions: Baclofen [Lioresal] 10 mg PO Q8H PRN #15 tab PRN Reason: Muscle Spasm Ibuprofen [Motrin] 600 mg PO Q8H PRN #30 tablet PRN Reason: Pain traMADoL [Ultram 50 MG tab] 50 mg PO Q8HR PRN #12 tablet PRN Reason: Pain , Severe (7-10) Referrals: [facility] [Provider Group] - 7-10 days Time of Disposition: 22:31 Print Language: LAO
--- NOTE | 2021-12-30 22:39 | XRay Report ---
RIGHT ANKLE 4 VIEW(S) INDICATION / CLINICAL INFORMATION: Pain - injury COMPARISON: None available. FINDINGS: BONES / JOINT(S): No acute fracture or subluxation. No significant arthritis. SOFT TISSUES: No significant abnormality. ADDITIONAL FINDINGS: None. IMPRESSION: No acute pathology. Signer Name: Otoniel Salazar II, MD Signed: 12/30/2021 10:35 PM Workstation Name: [id number]
--- NOTE | 2021-12-30 22:41 | XRay Report ---
RIGHT FOOT 3 VIEW(S) INDICATION / CLINICAL INFORMATION: Pain - Injury COMPARISON: None available. FINDINGS: BONES / JOINT(S): No acute fracture or subluxation. No significant arthritis. SOFT TISSUES: No significant abnormality. ADDITIONAL FINDINGS: None. IMPRESSION: 1. No acute pathology. No significant abnormality. Signer Name: Otoniel Salazar II, MD Signed: 12/30/2021 10:36 PM Workstation Name: [id number]
== END 2021-12-31 00:03 | disposition home or self-care (01) ==
LOC: ED 19:44
DX: S93.401A Sprain of unspecified ligament of right ankle, initial encounter (principal); S93.601A Unspecified sprain of right foot, initial encounter; I11.0 Hypertensive heart disease with heart failure; I50.9 Heart failure, unspecified; Z88.6 Allergy status to analgesic agent; Z88.8 Allergy status to other drugs, medicaments and biological substances; Z88.2 Allergy status to sulfonamides; Z79.899 Other long term (current) drug therapy; X58.XXXA Exposure to other specified factors, initial encounter; Y93.89 Activity, other specified; Y92.89 Other specified places as the place of occurrence of the external cause; Y99.8 Other external cause status
CPT/HCPCS: 99283; J3490; Q0162